=== PATIENT | male | born 1975 | race Caucasian/White ===

== ENCOUNTER 2023-05-03 06:08 | Inpatient (IN) | payer OTHER, SELFPAY ==
[2023-04-26 07:46] VITALS: BMI 30.5
[2023-04-26 08:56] LABS: Hematocrit 47.4 % (39.0-52.0); Hemoglobin 16.8 g/dL (13.0-18.0); Mean Corp Hgb Conc. 35.4 g/dL (33.0-37.0); Mean Corpuscular Hgb 31.1 pg (27.0-31.0); Mean Corpuscular Volume 87.6 fL (80.0-94.0); Platelet Count 275 10^3/uL (130-400); Red Blood Cell Count 5.41 10^6/uL (4.70-6.10); Red Cell Dist. Width 12.3 % (11.5-14.5); White Blood Cell Count 6.7 10^3/uL (4.8-10.8)
[2023-04-26 09:10] LABS: INR 0.99; PT 12.9 Sec (11.4-14.6)
[2023-04-26 09:11] LABS: APTT 26.8 Sec (23.4-35.0)
[2023-04-26 09:20] LABS: ALT (SGPT) 27 U/L (0-50); AST (SGOT) 21 U/L (17-59); Albumin 3.9 g/dl (3.5-5.0); Alkaline Phosphatase 61 U/L (38-126); Blood Urea Nitrogen 15 mg/dl (9-20); Calcium 9.4 mg/dl (8.4-10.2); Carbon Dioxide 25 mmol/L (22-30); Chloride 105 mmol/L (98-107); Estimated Creatinine Clearance > 125 ml/min; Glucose 99 mg/dl (70-99); Potassium 4.3 mmol/L (3.5-5.1); Sodium 139 mmol/L (135-145); Total Protein 6.3 g/dl (6.3-8.2); eGFR > 60.00
[2023-04-26 11:15] LABS: Glycohemoglobin (HgbA1c) 5.3 % (4.0-5.6)
[2023-05-03] VITALS (8 sets, daily range): BP systolic 101–146; BP diastolic 50–92; BMI 30.5
[2023-05-03] MEDS: TYLENOL 1000 MG PO (06:20)
[2023-05-03] MEDS: ENTEREG 12 MG PO (06:21)
[2023-05-03] MEDS: HEPARIN 5000 UNITS SC (06:21)
[2023-05-03] MEDS: NORMOSOL-R 1000 IV (06:37)
--- NOTE | 2023-05-03 09:02 | W.IMMPOSTOP ---
Surgical Immed Post Op Note
-
Primary Surgeon: Moises Pena MD
Assistants: SOFYA Oneill & ALLISON Hilton Do
Pre-op Diagnosis: Abnormal appendix (possible mucocele)
Post-op Diagnosis: Same
Procedure Performed: Laparosocpic appendectomy
Anesthesia Type: GET
Specimen / Cultures: Appendix with portion of cecum
Estimated Blood Loss: 5cc
Complications: None
Operative Findings: Slightly enlarged appendix
Patient's updated.
[2023-05-03] MEDS: DILAUDID 0.25 MG IV (09:48)
[2023-05-03] MEDS: ROXICODONE 5 MG PO (11:07)
== END 2023-05-03 12:00 | disposition home or self-care (01) | DRG 331 ==
LOC: AMOS 06:08
PROVIDERS: ADMITTING PHYSICIAN Surgery; FAMILY PHYSICIAN Physician Assistant Medical
PROC: 0DBH4ZZ Excision of Cecum, Percutaneous Endoscopic Approach (ICD-10-PCS; 2023-05-03)
PROC: 0DTJ4ZZ Resection of Appendix, Percutaneous Endoscopic Approach (ICD-10-PCS; 2023-05-03)
DX: K38.8 Other specified diseases of appendix (principal)
CPT/HCPCS: 88304; 36415; 80053; 83036; 85027; 85610; 85730; 86850; 86900; 86901; 93005; J1335

== ENCOUNTER → 2024-01-21 09:26 | Outpatient (REF) | payer OTHER, SELFPAY | LOC: HWRAD 09:26 | PROVIDERS: ATTENDING PHYSICIAN Family Medicine | DX: M54.12 Radiculopathy, cervical region (principal) | CPT/HCPCS: 72052 ==

== ENCOUNTER → 2024-02-14 18:29 | Outpatient (REF) | payer OTHER, SELFPAY | LOC: PAVMRI 18:29 | PROVIDERS: ATTENDING PHYSICIAN Physician Assistant Medical | DX: M54.16 Radiculopathy, lumbar region (principal) | CPT/HCPCS: 72148 ==

== ENCOUNTER → 2024-09-30 13:29 | Outpatient (REF) | payer OTHER, SELFPAY | LOC: HWRAD 13:29 | PROVIDERS: ATTENDING PHYSICIAN Student in an Organized Health Care Education/Training Program | DX: M25.511 Pain in right shoulder (principal); M77.01 Medial epicondylitis, right elbow; R20.0 Anesthesia of skin | CPT/HCPCS: 73030 ==